=== PATIENT | female | born 1955 | race Caucasian/White ===

== ENCOUNTER 2022-10-30 09:23 | Day surgery (SDC) | payer MEDICARE, BC ==
--- NOTE | 2022-10-24 17:45 | HP ---
DATE: 10/30/2022 HISTORY OF PRESENT ILLNESS: Patient is a 67 year-old female who presents with complaints of some loose stools since March 2021. She has also been having some constipation. She has had upper abdominal pain, epigastric pain after eating, and she had some regurgitation. She did have some stool labs done at some point with her family doctor that were fine. Her last colonoscopy was in 2006. She has been doing some Cologuards after that. They were fine. She is on Prilosec, Tums, and Pepcid for her epigastric pain. PAST MEDICAL HISTORY: Hypertension, hyperlipidemia, thyroid, anxiety/depression, gastroesophageal reflux disease. CURRENT MEDICATIONS: Cyclobenzaprine, Metaxalone, nitro, Ambien, Pepcid, trazodone, Zoloft, oxybutynin, aspirin, losartan, Norvasc, Lipitor, vitamin D, levothyroxine, Prilosec, acyclovir. ALLERGIES: CODEINE, MORPHINE, TRINTELLIX. PAST SURGERIES: Tonsillectomy, cholecystectomy, cystocele repair, hammertoe surgery. SOCIAL HISTORY: Negative. FAMILY HISTORY: None reported. REVIEW OF SYSTEMS: CONSTITUTIONAL: Denies fever or chills. CHEST: Denies shortness of breath. CVS: Denies chest pain. ABDOMEN: Reports epigastric pain. PHYSICAL EXAMINATION: GENERAL: No acute distress. CHEST: Nonlabored. No shortness of breath. CVS: Regular rate and rhythm. ABDOMEN: Soft. IMPRESSION: 1. EPIGASTRIC PAIN. 2. CHANGE IN BOWEL HABITS. 3. SCREENING. PLAN: EGD/colonoscopy with stool studies with Dr. Mark. Puentes. This report was dictated for Dr. Puentes by Becka Barron NP.
[2022-10-30 10:02] VITALS: RESP 16; TEMP 97.6
[2022-10-30] MEDS ORDERED: Lactated Ringers 1,000 ML IV ONE (10:05)
[2022-10-30] MEDS ORDERED: Lactated Ringers 1,000 ML IV SCH (10:30)
[2022-10-30] MEDS ORDERED: Xylocaine-Mpf 2% 5 Ml Vial ONE (11:09)
[2022-10-30] MEDS ORDERED: DIPRIVAN 200 MG/20 ML IV ONE (11:09)
[2022-10-30] MEDS ORDERED: Versed 2 MG/2 ML Injection ONE (11:09)
[2022-10-30 12:51] VITALS: BP 138/70; PULSE 68; O2SAT 99
--- NOTE | 2022-10-30 12:53 | OP ---
SURGERY DATE/TIME: 10/30/2022 1112 PREOPERATIVE DIAGNOSES: 1) Epigastric pain. 2) Change in bowel habits, screening. POSTOPERATIVE DIAGNOSES: 1) Mild hemorrhagic gastritis. 2) Grade 2 gastroesophageal reflux disease. 3) Three polyps: Cecal polyps 3 mm and 1 cm; transverse colon polyp 8 mm. 4) The patient has sigmoid spasm. PROCEDURES: 1) EGD with cold biopsy x1. 2) Colonoscopy complete to cecum with hot polypectomy x3. site. SURGEON: Vadim Puentes M.D. ANESTHESIA: MAC. COMPLICATIONS: None. CONDITION: Stable. DESCRIPTION OF PROCEDURE: Patient taken to endoscopy. Left lateral decubitus position. Scope introduced. Pharyngoesophageal junction normal. Esophagus normal down to gastroesophageal junction. Grade 2 over 4 gastroesophageal reflux disease. Fundus, body satisfactory. Antrum there was a mild hemorrhagic antritis. A financial [employer] representative biopsy submitted. Pylorus normal. Duodenal bulb normal. Second portion normal. Scope looped upon itself. No hiatal hernia. Scope withdrawn. Anal digital examination satisfactory. Very minimal hemorrhoidal disease. Scope advanced to the cecum. Base of the cecum, ileocecal valve, appendiceal orifice satisfactory. In the cecum there was a 1 cm and 3 mm polyp that were taken. In the mid transverse there an 8 mm polyp that was taken with hot biopsy forceps. Circumferential withdrawal. In the sigmoid there were lots of spasm but no diverticula. It was otherwise normal rectum, anus.
[2022-10-30 15:19] LABS: 027 TOX PROD PRESUMPTIVE NEGATIVE (NEGATIVE); TOXIGENIC C. DIFF ORG NEGATIVE (NEGATIVE)
== END 2022-10-30 12:47 | disposition home or self-care (01) ==
LOC: SDC 09:23
PROVIDERS: ATTEND Surgery
DX: Z12.11 Encounter for screening for malignant neoplasm of colon (principal); R10.13 Epigastric pain; R19.4 Change in bowel habit; K29.70 Gastritis, unspecified, without bleeding; K21.9 Gastro-esophageal reflux disease without esophagitis; K58.8 Other irritable bowel syndrome; K64.9 Unspecified hemorrhoids; D12.0 Benign neoplasm of cecum; D12.3 Benign neoplasm of transverse colon
CPT/HCPCS: 87045; 87046; 87177; 87209; 87328; 87329; 87427; 87493; J2250; J2704